=== PATIENT | male | born 1950 | race Caucasian/White ===

== ENCOUNTER → 2017-10-04 | Outpatient (CLI) | payer OTHER, MEDICARE | LOC: BMCIMAGING 08:27 | PROVIDERS: ATTEND Internal Medicine | DX: M24.851 Other specific joint derangements of right hip, not elsewhere classified (principal); M24.852 Other specific joint derangements of left hip, not elsewhere classified ==

== ENCOUNTER → 2018-01-14 | Outpatient (CLI) | payer OTHER, MEDICARE | LOC: FIMAGING 13:45 | PROVIDERS: ATTEND Orthopaedic Surgery | DX: Z01.818 Encounter for other preprocedural examination (principal); M16.12 Unilateral primary osteoarthritis, left hip ==

== ENCOUNTER 2018-02-10 06:00 | Inpatient (IN) | payer OTHER, MEDICARE ==
[~2018-02-10 06:00] MED LIST: BUPI/epINEPH/KETOROLAC IU ONE; BUPI/epINEPH/KETOROLAC/morphINE IU ONE; NS IV ONE; ROPIVACAINE 0.2% 80 MG, EPINEPHrine 0.2 MG, KETOROLAC TROMETHAMINE 30 MG, morphINE 10 M... IU ONE; TRANEXAMIC ACID IV ONE
[2018-02-10] MEDS ORDERED: LIDOCAINE 1% 2 ML INJ ONE (06:06)
[2018-02-10] MEDS ORDERED: FAMOTIDINE 20 MG TAB PO ONE (06:19)
[2018-02-10] MEDS ORDERED: ceFAZolin 2 GM/SWFI 2 GM/20 ML SYR IVP ONE (06:19)
[2018-02-10] MEDS ORDERED: ACETAMINOPHEN 325 MG TAB PO ONE (06:19)
[2018-02-10] MEDS ORDERED: ceFAZolin 1 GM/5 ML SYR ONE (06:19)
[2018-02-10] MEDS ORDERED: LIDOCAINE 1% 2 ML INJ ID PRN (06:20)
[2018-02-10] MEDS ORDERED: LR 1,000 ML IV ONE (06:20)
--- NOTE | 2018-02-10 06:57 | PDHPUP ---
History & Physical Update H&P update statement: This history and physical update is based on an assessment of the patient which was completed after admission or registration (within 24 hours), but prior to the surgery/procedure. H&P update: no change in patient's condition since H&P completed
[2018-02-10] MEDS ORDERED: MIDAZOLAM 2 MG/2 ML VIAL ONE ×2 (07:00→07:39)
--- NOTE | 2018-02-10 07:00 | PDHPUP ---
History & Physical Update H&P update statement: This history and physical update is based on an assessment of the patient which was completed after admission or registration (within 24 hours), but prior to the surgery/procedure. H&P update: H&P reviewed & patient examined
--- NOTE | 2018-02-10 07:02 | PDIAF ---
- Diagnosis Diagnosis: left hip djd Code Status: Full Code - Medication Management Discharge Medications: Medications to Continue on Transfer Cholecalciferol Vit D3 [Vitamin D3 (*)] 1,000 units PO DAILY 12/31/17 [Last Taken 2 Days Ago ~02/08/18] Herbals/Supplements -Info Only 1 ea PO DAILY 12/31/17 [Last Taken 2 Days Ago ~] Lisinopril/Hctz 10/12.5 mg [Zestoretic/Prinzide 10/12.5MG (*)] 1 ea PO DAILY [Last Taken 2 Days Ago ~02/08/18] Discharge Medications: Refer to the Discharge Home Medication list for PRN reason. - Orders Services needed: Physical Therapy Activity/Weight Bearing Restrictions: wbat. anterior hip precautions. daily dressing changes. ice prn. no soaking, may shower without bandage. f/u at two weeks - Follow Up Care Current Providers and Referrals: Kalyan Healy MD [Primary Care Provider] -
[2018-02-10] MEDS ORDERED: PROPOFOL/EMULSION 500 MG/50 ML BOTTLE IV ONE ×2 (07:11→08:35)
[2018-02-10] MEDS ORDERED: fentaNYL 100 MCG/2 ML INJ ONE (07:13)
[2018-02-10] MEDS: CALCIUM CHLORIDE 1 GM/10 ML INJ ONE ×2 (08:03→10:35)
[2018-02-10] MEDS: THROMBIN (BOVINE) 5,000 UNIT VIAL TP ONE ×2 (08:06→10:35)
[2018-02-10] MEDS ORDERED: MIDAZOLAM 2 MG/2 ML VIAL IVP ONE (08:11)
--- NOTE | 2018-02-10 08:12 | PDANEPAE ---
ANE Past Medical History - Cardiovascular History Hx Hypertension: Yes Hx Arrhythmias: No Hx Chest Pain: No Hx Coronary Artery / Peripheral Vascular Disease: No Hx CHF / Valvular Disease: No Hx Palpitations: No - Pulmonary History Hx COPD: No Hx Asthma/Reactive Airway Disease: No Hx Recent Upper Respiratory Infection: No Hx Oxygen in Use at Home: No Hx Sleep Apnea: No Sleep Apnea Screening Result - Last Documented: Negative - Neurologic History Hx Cerebrovascular Accident: No Hx Seizures: No Hx Dementia: No - Endocrine History Hx Diabetes: No - Renal History Hx Renal Disorders: Yes Renal History Comment: Kidney stones - Liver History Hx Hepatic Disorders: No - Neurological & Psychiatric Hx Hx Neurological and Psychiatric Disorders: No - Cancer History Hx Cancer: No - Congenital Disorder History Hx Congenital Disorders: No - GI History Hx Gastrointestinal Disorders: No - Other Health History Other Health History: osteo arthritis left hip - Surgical History Prior Surgeries: tonsillectomy ANE Review of Systems Review of Systems: - Exercise capacity METS (RN): 4 METS ANE Patient History - Allergies Allergies/Adverse Reactions: No Known Allergies Allergy (Unverified 08/28/11 21:31) - Home Medications Home Medications: Cholecalciferol Vit D3 [Vitamin D3 (*)] 1,000 units PO DAILY 12/31/17 [Last Taken 2 Days Ago ~02/08/18] Herbals/Supplements -Info Only 1 ea PO DAILY 12/31/17 [Last Taken 2 Days Ago ~] Lisinopril/Hctz 10/12.5 mg [Zestoretic/Prinzide 10/12.5MG (*)] 1 ea PO DAILY [Last Taken 2 Days Ago ~02/08/18] - NPO status NPO Since - Liquids (Date): 02/09/18 NPO Since - Liquids (Time): 20:00 NPO Since - Solids (Date): 02/09/18 NPO Since - Solids (Time): 17:00 - Smoking Hx Smoking Status: Never smoked - Family Anes Hx Family Hx Anesthesia Complications: none ANE Labs/Vital Signs - Vital Signs Blood Pressure: 137/83 Heart Rate: 81 Respiratory Rate: 18 O2 Sat (%): 94 Height: 187.96 cm Weight: 83.915 kg ANE Physical Exam - Airway Neck exam: decreased ROM Mallampati Score: Class 2 Mouth exam: normal dental/mouth exam - Pulmonary Pulmonary: no respiratory distress - Cardiovascular Cardiovascular: regular rate and rhythym - ASA Status ASA Status: II ANE Anesthesia Plan Anesthesia Plan: spinal Urgent/Emergent Case: Anes eval completed preop but documented later for safe timely pt care
[2018-02-10] MEDS ORDERED: PROMETHAZINE HCL 25 MG/ML INJ IVP PRN (08:40)
[2018-02-10] MEDS ORDERED: PROMETHAZINE HCL 25 MG SUPPR PR PRN (08:40)
[2018-02-10] MEDS ORDERED: oxyCODONE IR 5 MG TAB PO PRN (08:40)
[2018-02-10] MEDS ORDERED: DIAZEPAM 5 MG TAB PO PRN (08:40)
[2018-02-10] MEDS ORDERED: LACTULOSE 20 GM/30 ML UDCUP PO PRN (08:40)
[2018-02-10] MEDS ORDERED: BISACODYL 10 MG SUPP PR PRN (08:40)
[2018-02-10] MEDS ORDERED: METOCLOPRAMIDE 10 MG/2 ML VIAL IVP PRN (08:40)
[2018-02-10] MEDS ORDERED: ONDANSETRON 4 MG/2 ML VIAL IVP PRN ×2 (08:40→09:15)
[2018-02-10] MEDS ORDERED: DIPHENOXYLATE/ATROPINE LOMOTIL 1 TAB PO PRN (08:40)
[2018-02-10] MEDS ORDERED: MAGNESIUM HYDROXIDE 30 ML UDCUP PO PRN (08:40)
[2018-02-10] MEDS ORDERED: diphenhydrAMINE 25 MG CAP PO PRN (08:40)
[2018-02-10] MEDS ORDERED: POLYETHYLENE GLYCOL 3350 17 GM PKT PO PRN (08:40)
[2018-02-10] MEDS ORDERED: ONDANSETRON DISINTEGRATING 4 MG TAB PO PRN (08:40)
[2018-02-10] MEDS ORDERED: TEMAZEPAM 15 MG CAP PO PRN (08:40)
[2018-02-10] MEDS ORDERED: LR 1,000 ML IV SCH (09:00)
[2018-02-10] MEDS ORDERED: LR 500 ML IV PRN (09:15)
[2018-02-10] MEDS ORDERED: fentaNYL 100 MCG/2 ML INJ IVP PRN (09:15)
[2018-02-10] MEDS ORDERED: NALOXONE HCL 0.4 MG/ML INJ IVP PRN (09:15)
[2018-02-10] MEDS ORDERED: LABETALOL HCL 5 MG/ML 20 ML MDV IVP PRN (09:15)
[2018-02-10] MEDS ORDERED: HYDROCODONE/APAP 5/325 TAB PO PRN (09:15)
--- NOTE | 2018-02-10 09:17 | POSTANESTH ---
Post Anesthetic Evaluation Cardiovascular Status: Normal, Stable Respiratory Status: Normal, Stable Level of Consciousness/Mental Status: Can Participate in Eval Pain Control: Adequate, Prn Tx Ordered Nausea/Vomiting Control: Adequate, Prn Tx Ordered Complications Possibly Related to Anesthesia: None Noted
[2018-02-10] MEDS: TRANEXAMIC ACID 650 MG TAB PO SCH ×3 (11:16→20:17)
[2018-02-10] MEDS: SENNOSIDES/DOCUSATE SODIUM TAB PO SCH ×2 (11:16→20:17)
[2018-02-10] MEDS: LISINOPRIL/HCTZ 10/12.5 MG 1 EA TAB PO SCH (11:19)
[2018-02-10] MEDS: ACETAMINOPHEN 325 MG TAB PO SCH ×4 (12:33→22:46)
[2018-02-10] MEDS: ceFAZolin 2 GM/SWFI 2 GM/20 ML SYR IVP SCH ×2 (13:41→22:37)
[2018-02-10] MEDS ORDERED: ceFAZolin 2 GM/DEXTROSE 100 ML IV SCH (14:00)
--- NOTE | 2018-02-10 19:41 | PDMN ---
Medical Necessity Medical necessity: IP surgery per [facility] cpt 15737
[2018-02-10] MEDS: ASPIRIN 325 MG TAB PO SCH (20:15)
[2018-02-10] MEDS: FAMOTIDINE 20 MG TAB PO SCH (20:16)
[2018-02-11] MEDS: TRANEXAMIC ACID 650 MG TAB PO SCH (05:09)
[2018-02-11] MEDS: ACETAMINOPHEN 325 MG TAB PO SCH (05:09)
[2018-02-11 07:31] VITALS: BP 119/70; PULSE 69; RESP 16; TEMP 98.5; O2SAT 95
[2018-02-11] MEDS ORDERED: traMADol 50 MG TAB PO PRN (07:41)
--- NOTE | 2018-02-11 07:59 | SOAPPROG ---
SOAP Progress Note Assessment/Plan: Assessment: s/p left jodi Plan:d/c home when stable dvt precautions seek attn for increasing pain, or other focal complaint f/u at two weeks 02/11/18 07:57 Subjective: min pain no cp or sob doesnt want to take narcotics Objective: Vital Signs Temp Pulse Resp BP Pulse Ox 36.9 C 69 16 119/70 95 02/11/18 07:30 02/11/18 07:30 02/11/18 07:30 02/11/18 07:30 02/11/18 07:30 Laboratory Results 02/11/18 04:14 02/10/18 02/11/18 02/12/18 05:59 05:59 05:59 Intake Total 2550 Output Total 450 Balance 2100 dressing intact intact pf,df, ehl neg homans aspen xrays stable, no fx or lucency ICD10 Worksheet Patient Problems: Problems Problem Status Onset Hip arthritis Acute - ICD10 Problem Qualifiers (1) Hip arthritis
--- NOTE | 2018-02-11 08:00 | PDIAF ---
- Diagnosis Diagnosis: left hip djd Code Status: Full Code - Medication Management Discharge Medications: Medications to Continue on Transfer Cholecalciferol Vit D3 [Vitamin D3 (*)] 1,000 units PO DAILY 12/31/17 [Last Taken 2 Days Ago ~02/08/18] Herbals/Supplements -Info Only 1 ea PO DAILY 12/31/17 [Last Taken 2 Days Ago ~] Lisinopril/Hctz 10/12.5 mg [Zestoretic/Prinzide 10/12.5MG (*)] 1 ea PO DAILY [Last Taken 2 Days Ago ~02/08/18] Aspirin [Aspirin 325 mg (*)] 325 mg PO DAILY tab 02/11/18 [Last Taken Unknown] Diazepam [Valium 5 MG (*)] 5 mg PO Q6HRS PRN #30 tab 02/11/18 [Last Taken Unknown] oxyCODONE IR [Oxycodone Ir (*)] 5 - 10 mg PO Q3HRS PRN #40 tab 02/11/18 [Last Taken Unknown] traMADol [Ultram 50 mg (*)] 50 mg PO Q6HRS PRN #60 tab 02/11/18 [Last Taken Unknown] Discharge Medications: Refer to the Discharge Home Medication list for PRN reason. - Orders Services needed: Physical Therapy Diet Recommendation: no restrictions on diet Diet Texture: Regular Texture Diet Activity/Weight Bearing Restrictions: wbat. anterior hip precautions. daily dressing changes. ice prn. no soaking, may shower without bandage. f/u at two weeks - Follow Up Care Current Providers and Referrals: Kalyan Healy MD [Primary Care Provider] -
[2018-02-11] MEDS: ASPIRIN 325 MG TAB PO SCH (08:07)
[2018-02-11] MEDS: FAMOTIDINE 20 MG TAB PO SCH (08:07)
[2018-02-11] MEDS: LISINOPRIL/HCTZ 10/12.5 MG 1 EA TAB PO SCH (08:08)
[2018-02-11] MEDS: SENNOSIDES/DOCUSATE SODIUM TAB PO SCH (08:09)
== END 2018-02-11 10:58 | disposition home or self-care (01) | DRG 470 ==
LOC: F3N 06:00
PROVIDERS: ADMIT Orthopaedic Surgery; ATTEND Orthopaedic Surgery
PROC: 0SRB04A Replacement of Left Hip Joint with Ceramic on Polyethylene Synthetic Substitute, Uncemented, Open Approach (ICD-10-PCS; principal; 2018-02-10 07:15)
DX: M16.12 Unilateral primary osteoarthritis, left hip (principal); I10 Essential (primary) hypertension
CPT/HCPCS: 97110-GP; 97116-GP; 97161-GP; 97165-GO; 97530-GP; G8978-GP-CJ; G8979-GP-CI; G8980-GP-CI; G8987-GO-CI; G8988-GO-CI; G8989-GO-CI; J0171; J0690; J1885; J2250; J2270; J2704; J3010

== ENCOUNTER → 2018-03-31 | Outpatient (CLI) | payer OTHER, MEDICARE | LOC: BMCIMAGING 07:51 | PROVIDERS: ATTEND Physician Assistant | DX: Z47.1 Aftercare following joint replacement surgery (principal); Z96.642 Presence of left artificial hip joint ==

== ENCOUNTER → 2018-05-06 | Outpatient (CLI) | payer OTHER, MEDICARE | LOC: BMCIMAGING 08:18 | PROVIDERS: ATTEND Orthopaedic Surgery | DX: Z47.1 Aftercare following joint replacement surgery (principal); Z96.642 Presence of left artificial hip joint ==

== ENCOUNTER → 2018-08-12 | Outpatient (CLI) | payer OTHER, MEDICARE | LOC: BMCIMAGING 08:06 | PROVIDERS: ATTEND Orthopaedic Surgery | DX: Z47.1 Aftercare following joint replacement surgery (principal); Z96.642 Presence of left artificial hip joint ==

== ENCOUNTER → 2019-02-12 | Outpatient (CLI) | payer OTHER, MEDICARE | LOC: BMCIMAGING 08:18 | PROVIDERS: ATTEND Orthopaedic Surgery | DX: Z09 Encounter for follow-up examination after completed treatment for conditions other than malignant neoplasm (principal); Z96.642 Presence of left artificial hip joint ==